=== PATIENT | male | born 1985 | race Caucasian/White ===

== ENCOUNTER 2020-05-04 12:03 | Emergency (ER) | payer OTHER, SELFPAY ==
[2020-05-04 12:14] VITALS: BP 106/80; PULSE 91; RESP 16; TEMP 36.4; O2SAT 100
--- NOTE | 2020-05-04 12:52 | ED.URI ---
HPI - URI/Sore Throat General Chief Complaint: Upper Respiratory Infection Stated Complaint: Runny Nose,Fever Source: patient Mode of arrival: ambulatory Limitations: no limitations History of Present Illness HPI Narrative: Patient is a 34-year-old male who presents complaining of sore throat, ear pain and fever x1 day. He denies chest pain or shortness of breath. Denies cough or congestion. He denies taking [id number] medications. 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 MD elicited complaint: fever and sore throat Related Data Home Medications Medication Instructions Recorded Confirmed No Home Medications 05/04/20 05/04/20 Allergies Allergy/AdvReac Type Severity Reaction Status Date / Time No Known Allergies Allergy Unverified 09/19/17 15:14 Review of Systems Review of Systems: Narrative: CONSTITUTIONAL: Denies fever, chills, or sweats. EYES: Denies visual changes, redness, or discharge. ENT: Reports sore throat and bilateral otalgia CARDIOVASCULAR: Denies chest pain, palpitations, or edema. RESPIRATORY: Denies cough or dyspnea. GASTROINTESTINAL: Denies abdominal pain, nausea, vomiting, or diarrhea. GENITOURINARY: Denies dysuria or hematuria. SKIN: Denies rash or itching. MUSCULOSKELETAL: Denies back pain, joint pain, or myalgia. NEUROLOGIC: Denies headache, numbness, dizziness, or weakness. PSYCHIATRIC: Denies anxiety or depression. PMFSH Past Medical History Medical History No significant past medical history Surgical History Surgical History No significant past surgical history Family History Family History (Updated 05/04/20 @ 12:54 by FISH Mariano) Other No significant family history Social History Social History Smoking status: Current every day smoker Tobacco type: e-cigarettes/vaping Alcohol intake: never Substance use: never Living arrangements: with family Occupation/Education: occupation Exam Narrative: Exam Narrative: GENERAL: Well-appearing, well-nourished, and in no acute distress. HEAD: Normocephalic, atraumatic. EYES: No redness or drainage. Conjunctiva are normal. ENT: Mucous membranes pink and moist. TMs normal bilaterally. Throat with mild erythema. Uvula midline. NECK: AROM. Supple. No lymphadenopathy. CHEST: No respiratory distress. EXTREMITIES: Normal range of motion. SKIN: Warm, dry, no rash. NEURO: No focal deficits. Alert and oriented x3. Gait steady. PSYCH: Normal affect. No signs of depression or anxiety. Course Vital Signs Vital signs: Vital Signs Temperature 36.4 C 05/04/20 12:14 Pulse Rate 91 05/04/20 12:14 Respiratory Rate 16 05/04/20 12:14 Blood Pressure 106/80 05/04/20 12:14 Pulse Oximetry 100 05/04/20 12:14 Temperature 36.4 C 05/04/20 12:14 Pulse Rate 91 05/04/20 12:14 Respiratory Rate 16 05/04/20 12:14 Blood Pressure 106/80 05/04/20 12:14 Pulse Oximetry 100 05/04/20 12:14 Reviewed MDM - URI/Sore Throat MDM Narrative Medical decision making narrative: Patient's rapid strep and influenza are negative. Discussed with patient the possibility of Covid testing. Patient request Covid testing at this time. Patient informed of [facility]'s Covid testing procedure and Covid testing ordered at this time. Patient is aware of the need for quarantine. Discussed symptomatic treatment. Patient is stable for discharge home with outpatient follow-up as needed. Differential Diagnosis Differential diagnosis: Likely upper respiratory infection, otitis media, viral infection and pharyngitis Lab Data Labs: Influenza A Screen Negative Reference Range: Negative Influenza B Screen Negative
--- NOTE | 2020-05-04 13:03 | PC.NURSE ---
covid test order faxed.
== END 2020-05-04 13:08 | disposition home or self-care (01) ==
PROVIDERS: Emergency Provider Nurse Practitioner
DX: J06.9 Acute upper respiratory infection, unspecified (principal); Z20.828 Contact with and (suspected) exposure to other viral communicable diseases; F17.200 Nicotine dependence, unspecified, uncomplicated
CPT/HCPCS: 87081; 87804; 87880; 99213; G0463

== ENCOUNTER 2020-05-05 08:48 | Outpatient (NON) | payer OTHER, SELFPAY ==
[2020-05-05 18:29] LABS: SARS-CoV-2 RNA PCR Negative
== END 2020-05-05 08:49 ==
LOC: ANHCOVIDDT 08:49
PROVIDERS: Visit Provider Nurse Practitioner
DX: Z20.828 Contact with and (suspected) exposure to other viral communicable diseases (principal); J06.9 Acute upper respiratory infection, unspecified
CPT/HCPCS: 87635; C9803; U0003